=== PATIENT | female | born 1950 | race Caucasian/White ===

== ENCOUNTER 2016-06-10 01:28 | Inpatient (IN) | payer OTHER ==
[~2016-06-10] VITALS: Ht 157.5 cm; Wt 61.2 kg
[~2016-06-10 01:28] MED LIST: ALPRAZOLAM0.5 M4 PO; LIPITOR20 M2 PO; PAXIL40 M1 PO; SKELAXIN800 M1 PO; WELLBUTRIN XL150 M2 PO
--- NOTE | 2016-06-10 12:07 | Admission Core Measures ---
Admission Meds I reviewed the following Meds: Current Medications Sig/Rommel Start time Last Medication Dose Stop Time Status Admin Alprazolam 0.5 MG AT BEDTIME 06/10 2200 AC (Xanax) 06/17 2158 Atorvastatin Calcium 20 MG DAILY 06/11 1000 AC (Lipitor) Bupropion HCl 150 MG DAILY 06/11 1000 AC (Wellbutrin XL) Cefazolin Sodium 2,000 MG ONCE 06/10 0000 NR (Kefzol-Ancef Inj) 06/10 235 Metaxalone 800 MG BID 06/10 2200 AC (Skelaxin) Paroxetine HCl 40 MG DAILY 06/11 1000 AC (Paxil) Acute Coronary Syndrome Inclusion Criteria ACS Diagnosis No Inpatient Core Measures LDL Reminder: If No, please order W/I first 24hr of stay Congestive Heart Failure Inclusion Criteria CHF Diagnosis No Cerebrovascular accident Inclusion Criteria CVA/TIA Diagnosis No Inpatient Core Measures Bedside Swallow Eval Reminder: If BSE failed, place ST order Antithrombotic Reminder: Order Antithrombotic Medication by end of day 2 Antithrombotic Reminder: Document Reason Antithrombotic Not ordered by end of day 2 AFIB/Flutter Reminder: If Present, add to problem list AFIB/Flutter Reminder: Order Anticoag Medication for pts with AFIB/Flutter Atherosclerosis Reminder: If Present, add to problem list LDL Reminder: If No, please order W/I first 24hr of stay PT Order Reminder: If No, please order Venous thromboembolism Inpatient Core Measures VTE Risk Factors: Age > 40, Surgery VTE Prophylaxis Ordered Inpt [facility] No Mech VTE prophylaxis d/t No contraindications No VTE Pharm Prophylaxis d/t No contraindications Inclusion Criteria - Per Current guidelines, there needs to be overlap - treatment for the first 5 days of Warfarin therapy. - Parenteral Anticoagulation (IV or SC) needs to be - given along with Warfarin therapy. VTE Diagnosis No VTE Type NONE VTE Confirmed by (Test) NONE Problem List As ranked by this Provider includes Assessment & Plan 1. Unilateral primary osteoarthritis, left hip HOME MEDS Home Med List Alprazolam 0.5 MG TABLET 1 TAB PO QHS ANXIETY (Reported) Atorvastatin Calcium (Lipitor) 20 MG TABLET 1 TAB PO DAILY CHOLESTEROL ( Reported) Bupropion HCl (Wellbutrin XL) 150 MG TAB.ER.24H 1 TAB PO DAILY DEPRESSION ( Reported) Metaxalone (Skelaxin) 800 MG TABLET 1 TAB PO BID MUSCLE RELAXER (Reported) Paroxetine HCl (Paxil) 40 MG TABLET 1 TAB PO DAILY DEPRESSION (Reported)
[2016-06-10] MEDS ORDERED: DILAUDID2 M1 PO (12:11)
[2016-06-10] MEDS ORDERED: ASPIRIN EC325 M2 PO (12:11)
[2016-06-10] MEDS ORDERED: COLACE100 M1 PO (12:11)
[2016-06-10] MEDS ORDERED: MS CONTIN15 M2 PO (12:11)
[2016-06-10] MEDS ORDERED: MIRALAX17 G1 PO (12:11)
--- NOTE | 2016-06-10 12:14 | Patient Discharge Instructions ---
Discharge Instructions General Discharge Information You were seen/treated for: Left hip pain You had these procedures: 06/10 Left total hip replacement, anterior approach 06/11 orif periprosthetic left hip fracture Watch for these problems: Increasing pain, redness, warmth, swelling. Drainage of any type from incision. Inability to bear weight on left leg. Fever greater than 101.5. Do not soak the wound: Yes No bath, but you may shower: Yes Special Instructions: Incision: Dry dressing. May shower. No baths. No ointments of any kind. Ice as needed. Bowel regimen: Colace and or MiraLAX Weight-bearing as tolerated Follow-up with Dr. Emery in 6 weeks. Call office for fevers greater than 101.5, excessive drainage or inability to bear weight on operative extremity. Visiting nurse will change dressing. Diet Continue normal diet: Yes Recommended Diet: Heart Healthy Additional DIET Information: Advance as tolerated Activity Full Activity/No Limits: No Activity Self Limited: Yes Pounds, do NOT lift more than: 10 Additional ACTIVITY Info: Weight-bear as tolerated Acute Coronary Syndrome Inclusion Criteria At DC or during hospital stay patient has or had the following: ACS DIAGNOSIS No Discharge Core Measures Meds if any: Prescribed or Continued at Discharge Meds if any: NOT Prescribed or Continued at Discharge Congestive Heart Failure Inclusion Criteria At DC or during hospital stay patient has or had the following: CHF DIAGNOSIS No Discharge Core Measures Meds if any: Prescribed or Continued at Discharge Meds if any: NOT Prescribed or Continued at Discharge Cerebrovascular accident Inclusion Criteria At DC or during hospital stay patient has or had the following: CVA/TIA Diagnosis No Discharge Core Measures Meds if any: Prescribed or Continued at Discharge Meds if any: NOT Prescribed or Continued at Discharge Venous thromboembolism Inclusion Criteria VTE Diagnosis No VTE Type NONE VTE Confirmed by (Test) NONE Discharge Core Measures - Per Current guidelines, there needs to be overlap - treatment for the first 5 days of Warfarin therapy. - If discharged on Warfarin prior to 5 days of - overlap therapy, the patient will need to be - assessed for post discharge needs including - *Post discharge parental anticoagulation - *Warfarin and/or parental anticoagulation education - *Follow up date to check INR post discharge At least 5 days overlap therapy as Inpatient No Meds if any: Prescribed or Continued at Discharge Note: Overlap Therapy is Warfarin and Anticoagulant Meds if any: NOT Prescribed or Continued at Discharge
--- NOTE | 2016-06-10 12:17 | Surgical Discharge Summary ---
Visit Information Visit Dates Admission Date: 06/10/16 Discharge Date: 06/12/2016 History of Present Illness Chief Complaint: Left hip pain Medical History Isolation History: Standard Surgical History Pertinent Surgical History: non-contributory Review of Systems: See H&P Hospital Course Course Attending Physician: NIRAJ MORRIS MD Primary Care Physician: TERE AMIN,[place] Hospital Course: Patient was admitted to the hospital on 06/10/2016 for an elective left total hip replacement. She tolerated the procedure well. She was transferred to a general surgical floor. Her diet was advanced and tolerated. Her vital signs were stable and within normal limits. She voided spontaneously. Her pain was well controlled. However, post op xrays reealed periprosthetic femur fracture. She was taken back to OR on 06/11 for orif of this fracture. She tolerated the procedure and trandferred back to hfer room. 06/12 She was evaluated and treated by physical therapy. She was deemed appropriate for discharge. Complications: return to OR on 06/11 for orif of left periprosthetic femur fracture Allergies: Coded Allergies: No Known Allergies (06/03/16) Significant Procedures: 06/10 left dejan 06/11 orif left periprosthetic femur fracture Disposition Summary Disposition Principal Diagnosis: Left hip unilateral primary osteoarthritis Additional Diagnosis: None Discharge Disposition: home health services Discharge Instructions General Discharge Information Code Status: Full Code Patient's Diet: Heart healthy, advance as tolerated Patient's Activity: Weight-bear as tolerated on left leg Follow-Up Instructions/Appts: Incision: Dry dressing. May shower. No baths. No ointments of any kind. Ice as needed. Bowel regimen: Colace and or MiraLAX Weight-bearing as tolerated Follow-up with Dr. Morris in 6 weeks. Call office for fevers greater than 101.5, excessive drainage or inability to bear weight on operative extremity. Visiting nurse will change dressing. Medications at Discharge Discharge Medications: Continue taking these medications: Metaxalone (Skelaxin) 800 MG TABLET 1 Tablet ORAL TWICE DAILY Comments: DOCUMENTED PER CMR DURING PRE-SX INTERVIEW Atorvastatin Calcium (Lipitor) 20 MG TABLET 1 Tablet ORAL DAILY Comments: DOCUMENTED PER CMR DURING PRE-SX INTERVIEW Paroxetine HCl (Paxil) 40 MG TABLET 1 Tablet ORAL DAILY Comments: DOCUMENTED PER CMR DURING PRE-SX INTERVIEW Bupropion HCl (Wellbutrin XL) 150 MG TAB.ER.24H 1 Tablet ORAL DAILY Comments: SR OR XL NOT NOTED DURING PRE-SX INTERVIEW Alprazolam (Alprazolam) 0.5 MG TABLET 1 Tablet ORAL TAKE AT BEDTIME Comments: DOCUMENTED PER CMR DURING PRE-SX INTERVIEW Start taking the following new medications: Hydromorphone HCl (Dilaudid) 2 MG TABLET 1-2 Tablet ORAL Q4-6H as needed for PAIN Qty = 36 No Refills Morphine Sulfate (Ms Contin) 15 MG TABLET.ER 1 Tablet ORAL TWICE DAILY Qty = 6 No Refills Docusate Sodium (Colace) 100 MG CAPSULE 1 Capsule ORAL TWICE DAILY Qty = 14 No Refills Instructions: DISCONTINUE USE IF YOU DEVLEOP LOOSE STOOL OR DIARRHEA Polyethylene Glycol 3350 (Miralax) 17 GRAM POWD.PACK 1 Packet ORAL DAILY Qty = 7 No Refills Instructions: dissolve in water, DISCONTINUE USE IF YOU DEVELOP LOOSE STOOL OR DIARRHEA Aspirin (Ecotrin*) 325 MG TABLET. 1 Tablet ORAL TWICE DAILY Qty = 60 No Refills Copies To: ARTURO AMIN,NIRAJ
--- NOTE | 2016-06-10 13:03 | RADIOLOGY REPORT ---
EXAMINATION: XR HIP, LEFT CLINICAL INFORMATION: Status post left hip replacement COMPARISON: None TECHNIQUE: Two views of the left hip. FINDINGS: Left hip total arthroplasty components appear well-seated and in anatomic alignment. On the lateral view there is a subtle linear lucency overlying the proximal femoral diaphysis which may be artifactual in nature from overlapping soft tissue gas, as no correlate is seen on the frontal view. Soft tissue gas is noted in keeping with recent surgery. IMPRESSION: Left total hip arthroplasty in anatomic alignment. Subtle linear lucency along the proximal femoral diaphysis on the lateral view may be artifactual in nature, less likely nondisplaced fracture.
[2016-06-10 15:40] VITALS: BP 110/60
--- NOTE | 2016-06-10 16:00 | Operative Report ---
Operative/Inv Procedure Report Surgery Date: 06/10/16 Name of Procedure: Left total hip replacement Pre-Operative Diagnosis: Primary left hip DJD Post-Operative Diagnosis: Same Estimated Blood Loss: 250 Surgeon/Conditioner Tumbler: ARTURO AMIN,NIRAJ Sr Anesthesia: block Operative/Procedure Note Note: Description of Procedure: The patient was taken to the operating room and positively identified. After induction of spinal anesthesia and administration of appropriate pre-operative antibiotics, the patient was positioned supine on the operating room table and all bony prominences were well padded. After performing a surgical timeout, the left lower extremity was prepped and draped in the usual sterile fashion. A direct anterior approach was made to the left hip. The incision was carried sharply through superficial soft tissues to the level of the fascia. Meticulous hemostasis was maintained with Bovie electocautery. The fascia over the tensor fascia josé miguel muscle was opened sharply and the interval between the TFL and the sartorius was entered bluntly taking care to stay lateral to the lateral femoral cutaneous nerve. Retractors were placed around the femoral neck and the pericapsular fat was identified. The ascending branches of the lateral femoral circumflex vessels were identified and carefully coagulated. The pericapsular fat and anterior capsule were then resected. A napkin ring osteotomy was performed and the femoral head was removed without difficulty. Attention was then turned to the acetabulum. After appropriate placement of retractors, the acetabulum was exposed. Soft tissue was cleaned from the acetabular margin and notch. Overhanging osteophytes were removed and the teardrop was exposed. The acetabulum was then sequentially reamed to accept a 52 mm [place] Tritanium hemispherical solid back shell. This was impacted into place in the appropriate position and fitted with a 32 mm Trident X3 zero degree polyethylene insert. Attention was then turned to the femur. After performing the appropriate ligament releases, the proximal femur was exposed. It was then sequentially broached to accept a size 3 [place] accolade 2 stem. This was trialed for leg length and stability. The trial component was removed and the final component was impacted into place. The trunnion was carefully cleaned and fit with a 32 mm, +4 Biolox delta ceramic femoral head. The hip was reduced and put through a full range of motion and found to be stable. The articular space was then irrigated with sterile saline. The periarticular soft tissues were infilitrated with Marcaine. The fascial layer was closed with interrupted #1 vicryl suture and the skin was re-approximated with interrupted 2 -0 vicryl. The skin was closed with a running 3-0 V-Lock suture. Steri-strips and a sterile dressing were applied. The patient was awakened and taken to the recovery room in satisfactory condition.
--- NOTE | 2016-06-10 17:14 | CT SCAN REPORT ---
EXAMINATION: CT LOWER EXTREMITY WITHOUT CONTRAST, LEFT CLINICAL INFORMATION: Status post left hip replacement, question periprosthetic fracture COMPARISON: Left hip radiographs from earlier today TECHNIQUE: Noncontrast multidetector helical imaging was performed through the left hip. Coronal and sagittal reformatted images were created at the technologist workstation. DLP: 2317.38 mGy-cm. FINDINGS: Patient is status post left total hip arthroplasty. Hardware components appear well-seated and in anatomic alignment. There is a nondisplaced linear lucency in the lateral anterior cortex of the proximal to mid left femur adjacent to the stem of the prosthesis, in keeping with a nondisplaced fracture line; this is seen extending to the level of the mid femoral diaphysis. On coronal series 200 this is the visible on image 78. There are multiple foci of soft tissue gas around the left hip and along the proximal to mid thigh, in keeping with recent surgery. IMPRESSION: Status post left total hip arthroplasty. Linear lucency in the anterior cortex of the proximal to mid femur adjacent to the femoral stem hardware is consistent with a nondisplaced periprosthetic fracture.
[2016-06-10 17:40] VITALS: BP 114/68
[2016-06-10 19:40] VITALS: BP 102/60
--- NOTE | 2016-06-10 21:05 | PN- Orthopedic ---
Subjective Subjective: poc s/p left dejan comfortable no major complaints denies cp, sob, no n+v wtih diet has ambulated with pt Objective Vital Signs and I&Os Vital Signs Date Time Temp Pulse Resp B/P Pulse O2 O2 Flow FiO2 Ox Delivery Rate 06/10 1940 97.6 75 20 102/60 95 Room Air 06/10 1740 97.9 82 18 114/68 96 Room Air 06/10 1540 97.5 79 18 110/60 95 Room Air Intake & Output 06/10 1600 06/10 0800 06/10 0000 06/09 1600 06/09 0800 06/09 0000 Intake Total Output Total Balance Patient 135 lb Weight Physical Exam: cv: rrr lungs: clear abd: soft, +bs ext: left le thigh soft drsg dry distal cms intact Results Recent Imaging Studies: SERVICE DATE: 06/10/16- EXAM TYPE: CAT - CT LOWER EXT WO IV CONTRAST EXAMINATION: CT LOWER EXTREMITY WITHOUT CONTRAST, LEFT CLINICAL INFORMATION: Status post left hip replacement, question periprosthetic fracture COMPARISON: Left hip radiographs from earlier today TECHNIQUE: Noncontrast multidetector helical imaging was performed through the left hip. Coronal and sagittal reformatted images were created at the technologist workstation. DLP: 2317.38 mGy-cm. FINDINGS: Patient is status post left total hip arthroplasty. Hardware components appear well-seated and in anatomic alignment. There is a nondisplaced linear lucency in the lateral anterior cortex of the proximal to mid left femur adjacent to the stem of the prosthesis, in keeping with a nondisplaced fracture line; this is seen extending to the level of the mid femoral diaphysis. On coronal series 200 this is the visible on image 78. There are multiple foci of soft tissue gas around the left hip and along the proximal to mid thigh, in keeping with recent surgery. IMPRESSION: Status post left total hip arthroplasty. Linear lucency in the anterior cortex of the proximal to mid femur adjacent to the femoral stem hardware is consistent with a nondisplaced periprosthetic fracture. DICTATED BY: ADILSON JOHNSON MD DATE/TIME DICTATED:06/10/161655 [facility] FACULTY ASSISTANT:ALVARO DATE/TIME TRANSCRIBED:06/10/161655 Assessment/Plan Assessment/Plan s/p left dejan left periprosthetic fracture plan hold asa, mechanical comp for dvt prophylaxis non weightbearing npo after midnight return to OR tomorrow for orif left dejan fracture, per dr valencia discussed situation with patient and family and they are in agreement Core Measures/Miscellaneous Venous Thromboembolism VTE Risk Factors: Age > 40, Surgery VTE Contraindications: No Contraindications VTE Prophylaxis Ordered Inpt: Mechanical (ALPS/TEDS) No Pharm VTE Prophylaxis D/T: Surgical Contraindication VTE Diagnosis: No VTE Type: NONE VTE Confirmed by (Test): NONE Beta Shay Is Beta Shay a Home Med? No Antibiotics Is Patient on Antibiotics? Yes If Yes: prophylaxis
[2016-06-10 21:40] VITALS: BP 96/60
[2016-06-11 02:06] VITALS: BP 101/60
[2016-06-11 06:44] VITALS: BP 98/58
[2016-06-11 07:48] LABS: ABSOLUTE BASOPHIL COUNT 0 /CUMM (0.0-0.2); ABSOLUTE EOSINOPHIL COUNT 0 /CUMM (0.0-0.7); ABSOLUTE GRANULOCYTE CT 7.6 /CUMM (1.4-6.5); ABSOLUTE LYMPH COUNT 1.1 /CUMM (1.2-3.4); BASOPHIL % 0 % (0.0-2.0); EOSINOPHIL % 0.2 % (0-5); GRANULOCYTE % 78.3 % (42.2-75.2); HEMATOCRIT 31.2 % (37-47); MEAN CORPUSCULAR HGB 30.1 PG (27.0-31.0); MEAN CORPUSCULAR HGB CONC 33.5 G/DL (33.0-37.0); MEAN CORPUSCULAR VOLUME 89.8 FL (81.0-99.0); MEAN PLATELET VOLUME 8.2 FL (7.4-10.4); PLATELET COUNT 177 /CUMM (130-400); RBC DISTRIBUTION WIDTH 13.4 % (11.5-14.5); RED BLOOD CELL CT 3.48 /CUMM (4.20-5.40); WHITE BLOOD CELL COUNT 9.8 /CUMM (4.8-10.8)
--- NOTE | 2016-06-11 08:05 | PN- Orthopedic ---
Subjective Subjective: Patient with periprosthetic fracture. NAEO. Pain controlled. NPO. Currently NWB. Voiding. Denies CP/SOB. Objective Vital Signs and I&Os Vital Signs Date Time Temp Pulse Resp B/P Pulse O2 O2 Flow FiO2 Ox Delivery Rate 06/11 0644 98.0 62 18 98/58 95 Room Air 06/11 0206 97.8 71 18 101/60 94 Room Air 06/10 2140 97.5 72 18 96/60 94 Room Air 06/10 1940 97.6 75 20 102/60 95 Room Air 06/10 1740 97.9 82 18 114/68 96 Room Air 06/10 1540 97.5 79 18 110/60 95 Room Air Intake & Output 06/11 0800 06/11 0000 06/10 1600 06/10 0800 06/10 0000 06/09 1600 Intake Total 600 465 Output Total 750 Balance 600 -285 Intake, IV 600 225 Intake, Oral 240 Output, Urine 750 Patient 135 lb Weight Physical Exam: General: NAD, comfortable, A&Ox3 Chest: CTAB. RRR. Abdomen: soft, nontender, nondistended. Ext: Left hip dressing c/d/i. Left thigh softly swollen. No calve swelling/TTP , neurovascularly intact bilateral lower extremities Current Medications: Current Medications Sig/Rommel Start time Last Medication Dose Route Stop Time Status Admin Acetaminophen 1,000 MG Q6 06/10 1200 DC 06/11 IV 06/11 0601 0616 Alprazolam 0.5 MG AT BEDTIME 06/10 2200 DC PO 06/17 2158 Alprazolam 0.5 MG AT BEDTIME 06/10 2200 AC 06/10 PO 06/17 2158 211 Aspirin 325 MG BID 06/10 2200 CAN PO Atorvastatin Calcium 20 MG DAILY 06/11 1000 DC PO Atorvastatin Calcium 20 MG DAILY 06/11 1000 AC PO Bupropion HCl 150 MG DAILY 06/11 1000 DC PO Bupropion HCl 150 MG DAILY 06/11 1000 AC PO Cefazolin Sodium 2 GM Q8H 06/10 1800 DC 06/11 N/A 1 UNIT IV 06/11 0229 0209 Cefazolin Sodium 2,000 MG ONCE 06/10 0000 DC IV 06/10 2359 Dextrose/Sodium 1,000 ML .[id number] 06/10 1545 AC 06/11 Chloride IV 0002 Docusate Sodium 100 MG BID 06/10 1130 AC 06/10 PO 2112 Fentanyl Citrate 100 MCG .STK-MED ONE 06/10 0930 DC IM 06/10 0931 Hydromorphone HCl 2 MG Q4P PRN 06/10 1545 AC PO Hydromorphone HCl 4 MG Q4P PRN 06/10 1545 AC 06/11 PO 0616 Hydromorphone HCl 2 MG .STK-MED ONE 06/10 1408 DC IM 06/10 1409 Influenza Virus 0.5 ML ONCE ONE 06/10 1900 DC Vaccine IM 06/10 1901 Ketorolac 15 MG Q6P PRN 06/10 1545 AC 06/10 Tromethamine IV 06/13 1538 1718 Metaxalone 800 MG BID 06/10 2200 DC PO Metaxalone 800 MG BID 06/10 2200 AC 06/10 PO 211 Midazolam HCl 4 MG .STK-MED ONE 06/10 0930 DC IM 06/10 0931 Morphine Sulfate 15 MG BID 06/10 2200 AC 06/10 PO 211 Omeprazole 40 MG DAILY AC 06/11 0700 AC 06/11 PO 0616 Ondansetron HCl 4 MG Q6P PRN 06/10 1545 AC IV Oxycodone HCl 10 MG .STK-MED ONE 06/10 0912 DC PO 06/10 0913 Paroxetine HCl 40 MG DAILY 06/11 1000 DC PO Paroxetine HCl 40 MG DAILY 06/11 1000 AC PO Polyethylene Glycol 17 GM DAILY 06/10 1130 AC PO Promethazine HCl 12.5 MG Q6P PRN 06/10 1545 AC IV 06/17 1129 Tranexamic Acid 2,000 MG .STK-MED ONE 06/10 0929 DC IV 06/10 0930 Results Last 48 Hours of Labs: Laboratory Tests 06/11 628 Chemistry Sodium Pending Potassium Pending Chloride Pending Carbon Dioxide Pending Anion Gap Pending BUN Pending Creatinine Pending BUN/Creatinine Ratio Pending Hematology CBC w Diff Pending WBC Pending RBC Pending Hgb Pending Hct Pending MCV Pending MCH Pending RDW Pending Plt Count Pending MPV Pending PUBS MCHC Pending Assessment/Plan Assessment/Plan 65yo F POD#1 s/p left TARAH with periprosthetic fracture on radiologic studies which will require return to OR. - NPO - Pain control - IVF - I/O's - NWB LLE - ALPS - Bowel regimen - ASA held - Plan for OR this afternoon to evening with Dr. Emery Core Measures/Miscellaneous Venous Thromboembolism VTE Risk Factors: Age > 40, Surgery VTE Contraindications: No Contraindications VTE Prophylaxis Ordered Inpt: Mechanical (ALPS/TEDS) No Pharm VTE Prophylaxis D/T: Surgical Contraindication VTE Diagnosis: No VTE Type: NONE VTE Confirmed by (Test): NONE Beta Shay Is Beta Shay a Home Med? No Antibiotics Is Patient on Antibiotics? No If Yes: prophylaxis
--- NOTE | 2016-06-11 08:39 | NUR ---
Physical Therapy: Pt's chart reviewed this morning. Pt with a periprosthetic fracture. Going to OR today for ORIF. Will place on hold at this time from skilled PT. Please reconsult after OR procedure with appropriate WB status. Thank you.
[2016-06-11 13:43] VITALS: BP 108/54
--- NOTE | 2016-06-11 15:41 | NUR ---
1535- PT LEFT FLOOR VIA BED FOR OR.
--- NOTE | 2016-06-11 19:18 | PN- Orthopedic ---
Subjective Subjective: The patient was seen this evening postoperatively. She was sleepy but easily arousable. She reports that her pain is under adequate control and had no other complaints of current time. Objective Vital Signs and I&Os Vital Signs Date Time Temp Pulse Resp B/P Pulse O2 O2 Flow FiO2 Ox Delivery Rate 06/11 1343 98.4 76 20 108/54 96 06/11 0644 98.0 62 18 98/58 95 Room Air 06/11 0206 97.8 71 18 101/60 94 Room Air 06/10 2140 97.5 72 18 96/60 94 Room Air 06/10 1940 97.6 75 20 102/60 95 Room Air Intake & Output 06/11 1600 06/11 0800 06/11 0000 06/10 1600 06/10 0800 06/10 0000 Intake Total 600 600 465 Output Total 1250 750 Balance -650 600 -285 Intake, IV 600 600 225 Intake, Oral 240 Output, Urine 1250 750 Patient 135 lb Weight Physical Exam: Gen.: Sleepy but easily arousable and in no obvious distress Skin: Warm and dry Cardiac: S1-S2 regular Pulmonary: Bilateral breath sounds were equal but decreased at bases Extremities: Bilateral lower extremities are warm without calf tenderness or significant edema. Gross motor and sensory were intact. Left hip surgical dressing was clean, dry, and intact . Assessment/Plan Assessment/Plan Assessment: 65-year-old female status post revision of left total hip arthroplasty. Postoperatively the patient is progressing as expected and her pain is under adequate control. Plan: Continue current pain regiment IV hydration with strict I's and O's DC Watkins catheter and monitor for postoperative void Out of bed with physical therapy in the morning patient is weightbearing as tolerated Follow-up morning laboratory studies and x-ray of the hip Resume aspirin 325 mg by mouth twice a day first dose tonight GI and DVT prophylaxis Resume home medications 2 doses of postoperative prophylactic antibiotics Core Measures/Miscellaneous Venous Thromboembolism VTE Risk Factors: Age > 40, Surgery VTE Contraindications: No Contraindications VTE Prophylaxis Ordered Inpt: Mechanical (ALPS/TEDS) No Pharm VTE Prophylaxis D/T: Surgical Contraindication VTE Diagnosis: No VTE Type: NONE VTE Confirmed by (Test): NONE Beta Shay Is Beta Shay a Home Med? No Antibiotics Is Patient on Antibiotics? Yes If Yes: prophylaxis
[2016-06-11 20:00] VITALS: BP 118/52
[2016-06-11 22:17] VITALS: BP 102/62
[2016-06-12 00:24] VITALS: BP 90/62
[2016-06-12 02:24] VITALS: BP 98/60
[2016-06-12 04:11] VITALS: BP 92/56
--- NOTE | 2016-06-12 05:38 | NUR ---
LATE ENTRY: PT ARRIVED BACK TO FLOOR FROM PACU AT 06/11 IN HOSPITAL BED. VSS. NO COMPLAINTS OF PAIN, DRESSING INTACT. FAMILY AT BEDSITE. WILL MONITOR.
[2016-06-12 06:40] VITALS: BP 90/50
[2016-06-12 07:55] LABS: ABSOLUTE BASOPHIL COUNT 0 /CUMM (0.0-0.2); ABSOLUTE EOSINOPHIL COUNT 0 /CUMM (0.0-0.7); ABSOLUTE GRANULOCYTE CT 7.8 /CUMM (1.4-6.5); ABSOLUTE LYMPH COUNT 0.7 /CUMM (1.2-3.4); ABSOLUTE MONOCYTE COUNT 0.8 /CUMM (0.10-0.60); BASOPHIL % 0 % (0.0-2.0); EOSINOPHIL % 0 % (0-5); GRANULOCYTE % 83.9 % (42.2-75.2); HEMATOCRIT 28.5 % (37-47); MEAN CORPUSCULAR HGB 30.3 PG (27.0-31.0); MEAN CORPUSCULAR HGB CONC 33.6 G/DL (33.0-37.0); MEAN CORPUSCULAR VOLUME 90.3 FL (81.0-99.0); MEAN PLATELET VOLUME 8.5 FL (7.4-10.4); PLATELET COUNT 159 /CUMM (130-400); RBC DISTRIBUTION WIDTH 13.6 % (11.5-14.5); RED BLOOD CELL CT 3.16 /CUMM (4.20-5.40)
--- NOTE | 2016-06-12 08:20 | Operative Report ---
Operative/Inv Procedure Report Surgery Date: 06/11/16 Name of Procedure: ORIF Left femoral periprosthetic fracture Pre-Operative Diagnosis: Left femoral periprosthetic fracture Post-Operative Diagnosis: same Estimated Blood Loss: 50ml to 100ml Surgeon/Drupal Programmer: ARTURO AMIN,NIRAJ Thomas Anesthesia: block Operative/Procedure Note Note: Indications: The patient underwent a L TARAH on 06/10/16. Post op xrays and a subsequent CT revealed a nondisplaced periprosthetic femoral fracture. She is returned to the OR for ORIF. Description of Procedure: The patient was taken to the operating room and positively identified. After induction of spinal anesthesia and administration of preop antibiotics, she was positioned supine on the OR table and all bony prominences were well padded. The left lower extremity was then prepped and draped in the usual sterile fashion. Utilizing the previous incision, the direct anterior interval was entered. The hip space was irrigated and the hip was dislocated. The femoral head and femoral stem were both removed. The calcar region was closely inspected, and no fracture could be seen. At this point, a pair of D[place]-Miles cables were passed around the proximal femur, one proximal and one distal to the lesser trochanter. They were tightened and crimped. The original stem was re-impacted and a new Biolox deltal 32mm +4 head was impacted onto the well cleaned trunion. The hip was irrigated and infiltrated with local anesthetic. The wound was closed in layers, sterile dressings were applied and the patient was taken to recovery in stable condition.
[2016-06-12 09:03] LABS: WHITE BLOOD CELL COUNT 9.3 /CUMM (4.8-10.8)
[2016-06-12 09:55] VITALS: BP 100/60
--- NOTE | 2016-06-12 11:35 | RADIOLOGY REPORT ---
EXAMINATION: XR HIP, LEFT CLINICAL INFORMATION: Revision of left total hip arthroplasty. COMPARISON: 06/10/2016 TECHNIQUE: Two views of the left hip. FINDINGS: The femoral head prosthesis is well centered within the acetabular cup. The acetabular cup demonstrates normal anteversion and lateral version. The femoral stem is well-positioned within the medullary cavity of the proximal femoral diaphysis. The nondisplaced periprosthetic fracture within anterior, subtrochanteric cortex is not well seen on this follow-up exam. Interval placement of cerclage cables in the intertrochanteric and subtrochanteric regions of the femur. There is postoperative soft tissue swelling around the proximal femur/hip. IMPRESSION: Interval placement of cerclage cables in the intertrochanteric and subtrochanteric regions for treatment of the nondisplaced periprosthetic femoral fracture. The components of the left total hip arthroplasty are in satisfactory position.
[2016-06-12 14:13] VITALS: BP 118/70
== END 2016-06-12 15:20 | disposition home health service (06) | DRG 467 ==
LOC: ENRESERVTM → ENRESERVDT → 2NA 01:28 → SDA 01:28 → ENPENDDIS 01:28 → SDA 07:00 → 2NA 15:36
PROVIDERS: Nurse Practitioner; Physician Assistant Surgical; ADMIT Orthopaedic Surgery
PROC: 0SRB04A Replacement of Left Hip Joint with Ceramic on Polyethylene Synthetic Substitute, Uncemented, Open Approach (ICD-10-PCS; principal; 2016-06-10)
PROC: 0SRS03A Replacement of Left Hip Joint, Femoral Surface with Ceramic Synthetic Substitute, Uncemented, Open Approach (ICD-10-PCS; 2016-06-11)
PROC: 0SPS0JZ Removal of Synthetic Substitute from Left Hip Joint, Femoral Surface, Open Approach (ICD-10-PCS; 2016-06-11)
DX: M16.12 Unilateral primary osteoarthritis, left hip (principal); M97.02XA Periprosthetic fracture around internal prosthetic left hip joint, initial encounter; E78.5 Hyperlipidemia, unspecified; F41.9 Anxiety disorder, unspecified
CPT/HCPCS: 2NASP; 36415; 73502-LT; 82436; 87086; 88304; 97110-GO; 97116-GO; 97161-GP; 97530-GO; J0131; J0690; J0735; J1100; J2405; J2550; J7042; Q2036